=== PATIENT | female | born 2000 | race Hispanic/Latino ===

== ENCOUNTER 2022-11-16 07:37 | Inpatient (IN) | payer BC, OTHER ==
[2022-11-16] MEDS ORDERED: Bupivacaine 0.25% HCL 30 ML VIAL ONE (08:00)
[2022-11-16 08:18] VITALS: BMI 38.7
[2022-11-16] MEDS ORDERED: Ibuprofen 800 MG TAB PO PRN (08:22)
[2022-11-16] MEDS ORDERED: Promethazine HCl 25 MG/ML VIAL IM PRN ×3 (08:22→18:10)
[2022-11-16] MEDS ORDERED: Misoprostol 200 MCG TAB PR PRN (08:22)
[2022-11-16] MEDS ORDERED: Tranexamic Acid 1,000 MG/10 ML VIAL IVP PRN (08:22)
[2022-11-16] MEDS ORDERED: hydrALAZINE 20 MG/ML VIAL SLOW IVP PRN ×2 (08:22→18:10)
[2022-11-16] MEDS ORDERED: Diphenoxylate HCl/Atropine Tablet PO PRN (08:22)
[2022-11-16] MEDS ORDERED: Ondansetron PF 4 MG/2 ML Vial IVP PRN ×3 (08:22→18:10)
[2022-11-16] MEDS ORDERED: Lidocaine 1% (PF) 30 ML VIAL SC PRN (08:22)
[2022-11-16] MEDS ORDERED: NS w/ Oxytocin 30 units 500 ML IV SCH ×2 (08:30→09:30)
[2022-11-16] MEDS: Lactated Ringer's 1,000 ML IV SCH ×3 (08:30→11:20)
[2022-11-16 08:41] LABS: Hemoglobin 10.6 g/dL (12.0-15.5); Mean Corpuscular Hemoglobin 22.6 pg (27.0-33.0); Mean Corpuscular Volume 70.4 fl (81.6-98.3); Platelet Count 369 10x3/uL (150-450); RBC Distribution Width 14.9 % (11.5-14.5); White Blood Cell (WBC) Count 12.1 10x3/uL (3.5-10.5)
[2022-11-16] MEDS ORDERED: fentaNYL/Ropivacaine Epidural 100 ML ONE (08:41)
[2022-11-16 09:10] LABS: Syphilis Antibody Nonreactive (Nonreactive); Syphilis Antibody Index 0.27 S/CO (<1.00 Non-Reactive)
[2022-11-16] MEDS ORDERED: diphenhydrAMINE 50 MG/ML VIAL IVP PRN (09:12)
[2022-11-16] MEDS ORDERED: Lactated Ringer's 500 ML IV PRN (09:12)
[2022-11-16] MEDS ORDERED: ePHEDrine Sulfate 50 MG/10 ML VIAL SLOW IVP PRN (09:12)
[2022-11-16] MEDS ORDERED: Moisturizing Cream (Eucerin) 113 GM JAR TOP PRN (09:12)
[2022-11-16] MEDS ORDERED: Acetaminophen 325 MG TAB PO PRN (09:12)
[2022-11-16] MEDS ORDERED: Naloxone HCl 0.4 mg/ml Vial IVP PRN ×2 (09:12)
[2022-11-16] MEDS ORDERED: Communication Order-Pharmacy FS SCH (09:15)
[2022-11-16] MEDS ORDERED: fentaNYL 2 mcg/Ropivacaine 0.2% Epidural 100 ML CADD EPIDURAL SCH (09:15)
[2022-11-16 10:16] LABS: HBSAg Index 0.16 S/CO (0-0.99); Hep B Surf Ag - L&D Non-Reactive S/CO (NonReactive)
[2022-11-16] MEDS ORDERED: Bisacodyl 10 MG SUPP PR PRN (18:10)
[2022-11-16] MEDS ORDERED: Boostrix 0.5 ML (Tdap) VIAL (>/=7 yrs of age) IM ONE (18:10)
[2022-11-16] MEDS ORDERED: Milk Of Magnesia 30 ML UDCUP PO PRN (18:10)
[2022-11-16] MEDS ORDERED: HYDROcodone/Acetaminophen 5/325 mg Tablet PO PRN (18:10)
[2022-11-16] MEDS ORDERED: diphenhydrAMINE 25 MG CAP PO PRN (18:10)
[2022-11-16] MEDS ORDERED: Ferrous Sulfate 325 MG TAB PO SCH (18:30)
[2022-11-16] MEDS ORDERED: Acetaminophen 500 MG TAB PO PRN (20:01)
[2022-11-16] MEDS: Docusate 100 MG CAP PO SCH (21:51)
[2022-11-16] MEDS: Ibuprofen 800 MG TAB PO SCH (23:38)
[2022-11-17] MEDS ORDERED: Ferrous Sulfate 325 MG TAB PO SCH (08:00)
[2022-11-17] MEDS: Ibuprofen 800 MG TAB PO SCH (08:52)
[2022-11-17] MEDS: Docusate 100 MG CAP PO SCH (08:52)
[2022-11-17] MEDS ORDERED: Prenatal Vitamin 1 TAB PO SCH (09:00)
[2022-11-17 11:39] VITALS: BP 98/61; TEMP 97.6
== END 2022-11-17 18:05 | disposition home or self-care (01) | DRG 807 ==
LOC: CSHLD/OP 07:37 → CSHLD 08:26 → CSHPP 17:40
PROVIDERS: ADMIT Family Medicine; ATTEND Family Medicine
PROC: 10E0XZZ Delivery of Products of Conception, External Approach (ICD-10-PCS; principal; 2022-11-16)
PROC: 10907ZC Drainage of Amniotic Fluid, Therapeutic from Products of Conception, Via Natural or Artificial Opening (ICD-10-PCS; 2022-11-16)
DX: O42.02 Full-term premature rupture of membranes, onset of labor within 24 hours of rupture (principal); Z37.0 Single live birth; O48.0 Post-term pregnancy; O69.81X0 Labor and delivery complicated by cord around neck, without compression, not applicable or unspecified; Z3A.40 40 weeks gestation of pregnancy; Z79.899 Other long term (current) drug therapy
CPT/HCPCS: 51701; 51702; 84112; 85027; 86780; 86850; 86900; 86901; 87340; 99283; 99285; J2590; J7120; S0020